=== PATIENT | male | born 1960 | race African-American/Black ===

== ENCOUNTER 2017-10-04 08:19 | Outpatient (RCR) | payer OTHER ==
[~2017-10-04 08:19] MED LIST: ASPIRIN E.C. 8181 MG PO; FA-8800 MCG PO; MAG-CAPS85 MG PO; MOBIC15 MG PO; MULTI-DAY1 TAB PO; NIACIN100 MG PO; POTASSIUM595 MG PO
== END 2017-12-07 10:19 | disposition home or self-care (01) ==
LOC: WSOH 08:19
DX: S83.412A Sprain of medial collateral ligament of left knee, initial encounter (principal); S30.0XXA Contusion of lower back and pelvis, initial encounter; W00.0XXA Fall on same level due to ice and snow, initial encounter; Y93.H1 Activity, digging, shoveling and raking; Y99.0 Civilian activity done for income or pay; Y92.214 College as the place of occurrence of the external cause; Y92.480 Sidewalk as the place of occurrence of the external cause; Z79.84 Long term (current) use of oral hypoglycemic drugs